=== PATIENT | male | born 1955 | race Caucasian/White ===

== ENCOUNTER 2017-03-24 18:48 | Emergency (ER) | payer OTHER ==
[~2017-03-24] VITALS: Ht 185.4 cm; Wt 107.7 kg
[2017-03-24 19:09] VITALS: BP 154/91; PULSE 62; RESP 16; O2SAT 97
--- NOTE | 2017-03-24 21:06 | ED.REPORT ---
HPI-Head Prob / Injury Date of Service March 24, 2017 ED Provider: Samson Jones MD A healthy 61 year old male presents to the ED after a 40lb chair fell from a loft onto his on his head around 1600 this evening. The patient now reports generalized headache, neck pain, jaw pain, and back pain. He denies nausea, vomiting, numbness, weakness, confusion, imbalance, additional injury/trauma, or other symptoms. The patient was evaluated by EMS at onset and referred to the ED. Nursing Notes Stated Complaint: HEAD INJURY Chief Complaint: Head, Face, Neck Trauma Nursing Notes Reviewed: Yes ([place] not reconciled) Allergies: Coded Allergies: No Known Allergies (Unverified , 03/24/17) General Time Seen by Provider: 21:05 Chief Complaint Blunt head trauma Hx Obtained From: Patient Arrived By: Walk-in Onset Occurred: 1 - 4 hours ago Symptom Duration: Since onset Caused by: Blow to head Location: : Neck: Occipital region L: Occipital region R: Parietal region L: Parietal region R: Temporal parietal L: Temporal parietal R: Temporal region L: Temporal region R Quality: Aching, Painful Severity: Current: Moderate Severity: Maximum: Moderate Pertinent Negative: Relieved by nothing Immunizations: Tetanus > 10 yrs Recent Healthcare: No recent doctor visit Past Medical History Past Medical History None reported Past Surgical History None reported Smoking History Unknown if Ever Smoker Social History Other Social History: Good social support Ambulatory Status Independent Review of Systems Review of Systems Note: + Jaw pain - Imbalance Constitutional: Denies: Fever GI: Denies: Diarrhea, Nausea, Vomiting Musculoskeletal: Reports: Back pain, Neck pain Neurologic: Reports: Confusion, Headache, Denies: Numbness, Weakness Complete sys rev & neg: except as marked. Respiratory: Denies: Non-productive cough, Shortness of breath Physical Exam Initial Vital Signs Vital Signs (First) Date Time Temp Pulse Resp B/P Pulse Ox O2 Delivery O2 Flow Rate FiO2 03/24/17 19:09 36.0 62 16 154/91 97 Room Air Initial VS: Reviewed Respiratory: No respiratory distress Skin: Warm, Dry Psychiatric: Mood/affect normal, Behavior normal General/Constitutional: Awake, Alert, No acute distress Head / Eyes: Atraumatic, Normocephalic, EOMI ENT: Atraumatic, Airway patent, Mucous membranes moist Neck: Supple, Full range of motion, Non-tender, No midline vertebral tend Neurologic: Oriented X3, Speech NL, No motor deficits, No sensory deficits Re-Eval/Medical Decision Med Decision/Clinical Course This is a healthy well-appearing 61-year-old male who came in at the recommendation of paramedics as around 4:00 this afternoon a chair fell off about 4 feet and hit him in the head. It is a trace headache, he does not want any medicine for, he has no additional complaints. He has no worsening headache , no numbness weakness paresthesias, no nausea or vomiting, and he did not think any come in, but did so basically on the recommendation the paramedics. Well, he appears well, no visible external trauma is evident-there is no hematoma. His neurologic exam is normal. He is not on any anticoagulants. Given the patient appears well, is now 6 hours or so post injury and is doing so well, I am not finding indication that CT imaging is required. I have explained if he is concerned it is not unreasonable (given his age) but his clinical exam and findings are extraordinarily reassuring. The patient is comfortable going home, he lives with his family can continue to monitor him- and routine head injury precautions were reviewed. Patient's discharge in good condition. Re-Evaluation/Progress : Time of Eval: 21:20 Patient Status: Condition improved Re-Evaluation/Progress Note: Discussed with patient physical exam findings, diagnosis, and plan for discharge. Follow-up and return to the ER instructions given. Patient agrees with plan for care and all questions were addressed. Differential Diagnosis: Positive: Blunt head trauma, Negative: Abrasion, Basilar skull fracture, Cerebral contusion, Cervical spine injury, Closed head injury, Epidural hematoma, Epistaxis, Gun shot wound head, Intracranial hemorrhage, Scalp laceration, Seizure, Skull fracture Counseled Regarding: Diagnosis, Need for follow-up, When/why to return to ED Discharge & Departure Primary Impression: Blunt head trauma Encounter type: initial encounter Qualified Code: S09.8XXA - Other specified injuries of head, initial encounter Disposition: Home All VS Reviewed: Yes Condition: Improved Additional Instructions: 1. Your exam is reassuring, I am not finding indication that he require a CT scan of her brain tonight. 2. It is okay to sleep. Activities as tolerated. 3. However, if he develop a worsening headache. If he develops nausea or vomiting, it felt change in coordination, balance, speech, or thinking-return directly to the emergency department. 4. It is okay to take a dose of Tylenol or ibuprofen if needed. Referrals: Clau Osman PA-C (PCP) Scribe Attestation Portions of this note were transcribed by Katie Mcarthur. I, Dr. Jones, personally performed the history, physical exam, and medical decision-making; I reviewed and confirmed the accuracy of the information in the transcribed note. Signed by: Jarad Burkett, 03/24/2017, 22:30 copies to: Clau Osman PA-C, Matthew F MD March 24, 2017 21:06 KATIE MCARTHUR March 24, 2017 21:17
[2017-03-24 21:20] VITALS: BP 154/91; PULSE 62; RESP 16; O2SAT 97
== END 2017-03-24 21:20 | disposition home or self-care (01) ==
LOC: SED 18:48
DX: S09.8XXA Other specified injuries of head, initial encounter (principal); W20.8XXA Other cause of strike by thrown, projected or falling object, initial encounter; Y93.89 Activity, other specified; Y92.89 Other specified places as the place of occurrence of the external cause; Y99.8 Other external cause status; M54.2 Cervicalgia; M54.9 Dorsalgia, unspecified; R68.84 Jaw pain